=== PATIENT | male | born 1960 | race Caucasian/White ===

== ENCOUNTER 2017-11-21 09:05 | Outpatient (CLI) | payer BC | END 2017-11-21 09:06 | disposition home or self-care (01) | LOC: BICRAD 09:05 | PROVIDERS: ATTEND Urology | DX: N20.0 Calculus of kidney (principal) | CPT/HCPCS: 74018 ==

== ENCOUNTER 2018-01-16 08:58 | Outpatient (CLI) | payer BC ==
[2018-01-16 10:54] LABS: Hemoglobin 15.3 g/dL (14.0-18.0); Mean Corpuscular HGB CONC 32.9 g/dL (32.0-36.0); Mean Corpuscular Hemoglobin 30.7 pg (27.0-31.0); Mean Corpuscular Volume 93.3 fL (78.0-98.0); Mean Platelet Volume 7.3 fL (7.4-10.4); Platelet Count 230 thou/uL (130-400); RBC Distribution Width 11.9 % (11.5-14.5); Red Blood Cell (RBC) Count 4.99 mill/uL (4.70-6.10); White Blood Cell (WBC) Count 6.5 thou/uL (4.8-10.8)
[2018-01-16 11:00] LABS: Prothrombin Time 13.5 SEC (12.0-14.7)
[2018-01-16 11:12] LABS: Anion Gap 13 mmol/L (10-20); BUN (Urea Nitrogen) 24 mg/dL (8.4-25.7); Calc. Creatinine Clearance 0 mL/min (70-130); Calcium 9.7 mg/dL (7.8-10.44); Carbon Dioxide 28 mmol/L (22-29); Chloride 104 mmol/L (98-107); Estimated GFR-MDRD 62; Glucose 67 mg/dL (70-105); Potassium 4.1 mmol/L (3.5-5.1); Sodium 141 mmol/L (136-145)
[2018-01-16 11:29] LABS: Bilirubin Negative (Negative); Blood, Urine Negative (Negative); Glucose, Urine (Dipstick) Negative (Negative); Leukocyte Negative (Negative); Nitrite Negative (Negative); Protein, Urine (Dipstick) Negative (Neg-Trace); Urobilinogen 0.2 mg/dL (0.2-1.0)
[2018-01-16 11:32] LABS: Clarity Clear (Clear)
[2018-01-16 11:37] LABS: Bacteria/HPF None Seen HPF (None Seen); Hyaline Casts/LPF NONE SEEN LPF (0-3 Hyaline); RBC/HPF 0-3 HPF (0-3); Squamous Epithelial 0-3 HPF (0-3); WBC/HPF 0-3 HPF (0-3)
--- NOTE | 2018-01-17 07:53 | EKG ---
Test Reason : Blood Pressure : / mmHG Vent. Rate : 057 BPM Atrial Rate : 057 BPM P-R Int : 206 ms QRS Dur : 090 ms QT Int : 414 ms P-R-T Axes : 075 080 055 degrees QTc Int : 402 ms Sinus bradycardia Otherwise normal ECG When compared with ECG of 07-AUG-2016 18:49, Premature supraventricular complexes are no longer Present Questionable change in QRS axis Confirmed by DR. Harley VENEGAS ([id number]) on 01/17/2018 7:53:38 AM Referred By: MUMTAZ Confirmed By:DR. Harley VENEGAS
== END 2018-01-16 08:59 | disposition home or self-care (01) ==
LOC: LABBT 08:58
PROVIDERS: ATTEND Urology
DX: Z01.818 Encounter for other preprocedural examination (principal); N20.0 Calculus of kidney
CPT/HCPCS: 80048; 81001; 85027; 85610; 85730; 87086; 93005; 93010

== ENCOUNTER 2018-01-31 06:56 | Day surgery (SDC) | payer BC ==
[2018-01-16 09:31] VITALS: BMI 24.4
[2018-01-31] MEDS ORDERED: Levofloxacin 500 mg/D5W 100 ml Premix Bag ONE (08:04)
[2018-01-31] MEDS ORDERED: Midazolam HCl 2 mg/2 ml Vial ONE (09:46)
[2018-01-31] MEDS ORDERED: CEFAZOLIN 1 GM VIAL ONE (09:55)
[2018-01-31] MEDS ORDERED: Sodium Chloride 0.9% 100 ML ONE (09:55)
[2018-01-31] MEDS ORDERED: Fentanyl 100 MCG/2 ML VIAL ONE ×2 (10:02→11:58)
[2018-01-31] MEDS ORDERED: Iothalamate Meglumine 60% 50 ML VIAL FS ONE (10:04)
[2018-01-31] MEDS ORDERED: Phenazopyridine HCl 97.5 MG TABLET ONE ×2 (11:43)
--- NOTE | 2018-01-31 12:37 | OP ---
DATE OF PROCEDURE: 01/31/2018 SERVICE: Urology. SURGEON: Jian Montemayor M.D. PREOPERATIVE DIAGNOSIS: Bilateral renal stones. POSTOPERATIVE DIAGNOSIS: Bilateral renal stones. PROCEDURE PERFORMED: Left ureteroscopy, laser lithotripsy, basket extraction of stones and placement of 6 x 28 double-J stent. INDICATIONS FOR PROCEDURE: Mr. Collins is a 57-year-old white male who has bilateral renal stones. He came to me for management of stone disease. Due to his stone burden, we recommended left ureter oscopy and removal of stones. We can perform a metabolic workup later with deferred treatment of the right side depending on when he wants to do it. All risks and benefits have been discussed and he h as agreed to proceed forward. DESCRIPTION OF PROCEDURE: After identification of armband and verification of consent, the patient w as brought back to the operating room. He underwent general anesthesia with endotracheal intubation. He was then placed in dorsal lithotomy position and prepped and draped in usual sterile fashion. A fter appropriate timeout, a lubricated 22 Greenlandic rigid cystoscope was introduced per urethra into the bladder. Attention was turned to the left ureteral orifice which was cannulated with a 0.035 sensor wire up to the level of the renal pelvis. The cystoscope was then removed and a dual-lumen catheter was advanced over the sensor wire up to level the proximal ureter. An Amplatz Super Stiff wire was then placed to the second lumen up to the level of the renal pelvis and a dual-lumen catheter was the n removed. A 11/13 x 46 cm ureteral access sheath was advanced over the Super Stiff wire up to the l evel of the proximal ureter. The inner cannula and the Super Stiff wire were then removed leaving th e outer sheath and the sensor wire in place as a safety wire. A digital flexible ureteroscope was th en passed up the ureteral access sheath up to the level of renal pelvis. A full pyeloscopy was perfo rmed and there were noted to be stones in almost every maria alejandra with a large stone in the mid pole being a 9 mm stone. Using a 200 micron laser fiber, the larger stones were fragmented into smaller pieces and then a 1.9 Greenlandic 0 tip nitinol basket used to basket out all large fragments of the stone. All calices had their stones removed and upon completion, there were only probably 2-3, 1 mm stones left . I felt that these would pass on their own as they were too difficult to grab with the basket. Pul l back ureteroscopy was employed and no additional stones were seen within the ureter. The ureterosc ope was then removed with the sheath and the cystoscope brought back and over the sensor wire back in to the bladder. A 6 x 28 double-J stent was advanced over the sensor wire up to the level of the reza al pelvis. The wire was then removed leaving a partial curl in the kidney and a good curl in the nic dder. The bladder was emptied and cystoscope removed. The patient was awakened and taken to PACU fo r recovery in stable condition. COMPLICATIONS: None. ESTIMATED BLOOD LOSS: Minimal. RETAINED TUBES AND DRAINS: A 6 x 28 double-J stent on the left. SPECIMENS: Stone for stone analysis. DISPOSITION: The patient will be discharged home and follow up with me in approximately 1 week for c ystoscopy stent removal.
[2018-01-31] MEDS ORDERED: Ketorolac Tromethamine 30 MG/ML VIAL ONE (14:21)
[2018-01-31] MEDS ORDERED: Lidocaine 1% PF 5 ML VIAL ONE (14:21)
[2018-01-31] MEDS ORDERED: Dexamethasone 20 MG/5 ML VIAL ONE (14:21)
[2018-01-31] MEDS ORDERED: Ondansetron HCl/PF 4 MG/2 ML Vial ONE (14:21)
[2018-01-31] MEDS ORDERED: PROPOFOL 200 MG/20 ML VIAL ONE (14:21)
[2018-02-05 16:14] LABS: CA Oxalate Monohydrate 95 % (.); Color Brown (.); Stone Weight 150.7 mg (.)
== END 2018-01-31 13:28 | disposition home or self-care (01) ==
LOC: SDC 06:56
PROVIDERS: ATTEND Urology
PROC: 0T778DZ Dilation of Left Ureter with Intraluminal Device, Via Natural or Artificial Opening Endoscopic (ICD-10-PCS; principal; 2018-01-31)
PROC: 0TC48ZZ Extirpation of Matter from Left Kidney Pelvis, Via Natural or Artificial Opening Endoscopic (ICD-10-PCS; principal; 2018-01-31)
DX: N20.0 Calculus of kidney (principal); L40.9 Psoriasis, unspecified; F32.9 Major depressive disorder, single episode, unspecified; R73.03 Prediabetes; Z87.442 Personal history of urinary calculi; Z79.84 Long term (current) use of oral hypoglycemic drugs; Z79.899 Other long term (current) drug therapy
CPT/HCPCS: 74420; 76000; 82365; 88300; 96374; C1769; J0690; J1100; J1885; J1956; J2001; J2250; J2405; J2704; J3010; J7050; Q9961

== ENCOUNTER 2018-03-11 14:11 | Outpatient (CLI) | payer BC ==
--- NOTE | 2018-03-11 15:54 | ULT ---
COMPLETE BILATERAL RENAL ULTRASOUND: HISTORY: A 57-year-old male with a history of renal calculi. The patient had recent left lithotripsy. COMPARISON: Prior CT scan from 08/07/2016. FINDINGS: The right kidney measures 10.2 x 5.4 x 4.9 cm. The left kidney measures 11.7 x 6.4 x 5.2 cm. There is a 0.9 x 1.0 cm cyst involving the upper pole of the right kidney. There is no renal hydronephrosi s. There are numerous shadowing calcific foci in both kidneys, evidence for bilateral renal calculi. The bladder appears unremarkable. IMPRESSION: 1. Multiple nonobstructing bilateral renal calculi. 2. Small right upper pole renal cyst. POS: [facility]
== END 2018-03-11 14:12 | disposition home or self-care (01) ==
LOC: SCSULT 14:11
PROVIDERS: ATTEND Urology
DX: N20.0 Calculus of kidney (principal); N28.1 Cyst of kidney, acquired
CPT/HCPCS: 76770

== ENCOUNTER 2018-04-01 14:32 | Outpatient (CLI) | payer BC ==
[2018-04-01 15:02] LABS: #Eosinphils 0.1 thou/uL (0.0-0.7); #Lymphocytes 1.5 thou/uL (1.20-3.40); #Monocytes 0.7 thou/uL (0.11-0.59); #Neutrophils 3.7 thou/uL (1.40-6.50); %Basophils 0.6 % (0.0-1.0); %Eosinophils 1.7 % (0.0-10.0); %Lymphocytes 24.8 % (21.0-51.0); %Monocytes 11.8 % (0.0-10.0); %Neutrophils 61.1 % (42.0-75.0); Hemoglobin 14.6 g/dL (14.0-18.0); Mean Corpuscular HGB CONC 31.7 g/dL (32.0-36.0); Mean Corpuscular Hemoglobin 29.6 pg (27.0-31.0); Mean Corpuscular Volume 93.6 fL (78.0-98.0); Mean Platelet Volume 6.9 fL (7.4-10.4); Platelet Count 213 thou/uL (130-400); RBC Distribution Width 11.9 % (11.5-14.5); Red Blood Cell (RBC) Count 4.93 mill/uL (4.70-6.10)
[2018-04-01 15:07] LABS: PTT 27.7 SEC (22.9-36.1)
[2018-04-01 15:23] LABS: Bilirubin Negative (Negative); Blood, Urine Negative (Negative); Clarity CLEAR (Clear); Glucose, Urine (Dipstick) Negative (Negative); Leukocyte Negative (Negative); Nitrite Negative (Negative); Protein, Urine (Dipstick) Negative (Neg-Trace); Specific Gravity, Urine 1.012 (1.002-1.036); Urobilinogen 0.2 mg/dL (0.2-1.0); pH, Urine 5.5 (5.0-9.0)
[2018-04-01 15:25] LABS: Anion Gap 10 mmol/L (10-20); BUN (Urea Nitrogen) 22 mg/dL (8.4-25.7); Calc. Creatinine Clearance 0 mL/min (70-130); Calcium 9.9 mg/dL (7.8-10.44); Carbon Dioxide 30 mmol/L (22-29); Chloride 102 mmol/L (98-107); Estimated GFR-MDRD 68; Glucose 96 mg/dL (70-105); Potassium 4.1 mmol/L (3.5-5.1); Sodium 138 mmol/L (136-145)
[2018-04-01 15:31] LABS: Bacteria/HPF None Seen HPF (None Seen); Hyaline Casts/LPF 0-3 HYALINE CAST LPF (0-3 Hyaline); Pathc Cast-AUWi Flag 0.14 (0-2.49); RBC/HPF 0-3 HPF (0-3); Squamous Epithelial None Seen HPF (0-3); WBC/HPF None Seen HPF (0-3)
== END 2018-04-01 14:33 | disposition home or self-care (01) ==
LOC: LABBT 14:32
PROVIDERS: ATTEND Urology
DX: Z01.818 Encounter for other preprocedural examination (principal); N20.0 Calculus of kidney
CPT/HCPCS: 80048; 81001; 85025; 85610; 85730; 87086; 93005; 93010

== ENCOUNTER 2018-04-11 07:53 | Day surgery (SDC) | payer BC ==
[2018-04-01 15:02] VITALS: BMI 25.8
[2018-04-11] MEDS ORDERED: Lidocaine 1% PF 5 ML VIAL ONE (11:19)
[2018-04-11] MEDS ORDERED: Glycopyrrolate 0.2 MG/ML 5 ML SYRINGE ONE (11:19)
[2018-04-11] MEDS ORDERED: Dexamethasone 20 MG/5 ML VIAL ONE (11:19)
[2018-04-11] MEDS ORDERED: PROPOFOL 200 MG/20 ML VIAL ONE (11:19)
[2018-04-11] MEDS ORDERED: Ondansetron PF 4 MG/2 ML Vial ONE (11:19)
[2018-04-11] MEDS ORDERED: ePHEDrine/0.9% NaCl/PF SYRINGE 50 mg/10 ml ONE (11:19)
[2018-04-11] MEDS ORDERED: Levofloxacin 500 mg/D5W 100 ml Premix Bag ONE (11:38)
[2018-04-11] MEDS ORDERED: Midazolam HCl 2 mg/2 ml Vial ONE (11:51)
[2018-04-11] MEDS ORDERED: Fentanyl 100 MCG/2 ML VIAL ONE ×2 (11:55→14:14)
[2018-04-11] MEDS ORDERED: Phenazopyridine HCl 97.5 MG TABLET ONE ×2 (13:40→13:48)
[2018-04-11] MEDS ORDERED: Phenazopyridine HCl 97.5 MG TABLET PO SCH (14:15)
[2018-04-11] MEDS ORDERED: HYDROcodone/Acetaminophen 5/325 mg Tablet ONE (15:43)
[2018-04-11] MEDS ORDERED: Promethazine HCl 25 MG/ML VIAL ONE (16:23)
--- NOTE | 2018-04-11 21:48 | OP ---
DATE OF PROCEDURE: 04/11/2018 SERVICE: Urology. PREOPERATIVE DIAGNOSIS: Right renal stones. POSTOPERATIVE DIAGNOSIS: Right renal stones. PROCEDURES PERFORMED: Right ureteroscopy, laser lithotripsy, basket extraction of stones and placement of a 6 x 28 double J-stent. INDICATIONS FOR PROCEDURE: Mr. Collins is a 57-year-old white male who presented initially with the right obstructing stone and bilateral nephrolithiasis. He ended up passing his right ureteral stone, but has large stones in the left and right. He has already completed a left ureteroscopy with removal of all stones and is now coming back to get the right side cleaned out. Risks and benefits have been discussed, and he has agreed to proceed forward. DESCRIPTION OF PROCEDURE: After identification of arm band and verification of consent, the patient was brought back to the operating room, where he underwent general anesthesia with endotracheal intubation. He was then placed in dorsal lithotomy position and prepped and draped in the usual sterile fashion. After appropriate time-out, a lubricated 22-Mauritanian rigid cystoscope was introduced per urethra into the bladder and attention turned to the right ureteral orifice, which was cannulated with the 0.035 Sensor wire up to the level of the renal pelvis. The cystoscope was then removed and a dual-lumen catheter was advanced over the Sensor wire up to the level of the proximal ureter. An Amplatz Super Stiff wire was then placed through the second lumen up to the level of the renal pelvis and the dual-lumen removed. The Sensor wire was affixed to the drapes and safety wire. An 11/13 x 46 cm ureteral access sheath was advanced over the Super Stiff wire up to the level of the mid proximal ureter, where it would not advance any further. The inner cannula and Super Stiff wire were then removed and disposable flexible digital ureteroscope was brought in and advanced up the ureter into the renal pelvis. Full pyeloscopy was performed, and there were multiple calices that had intermediate to larger size stones. 200 micron laser fibers were used to fragment all of the stones into pieces that were able to be removed and a 1.9-Mauritanian ZeroTip Nitinol basket was used to remove all fragments that were over 1 mm in size. Upon completion, all stone fragments remaining were less than a millimeter, they were extremely small and too small to grasp with the basket. Satisfied that all the major stones had been removed and any residual pieces could pass on their own. The final pyeloscopy was performed and no additional stones were found. Pull-back ureteroscopy was then employed and no additional stones were found in the ureter. The ureteroscope was then removed along with the sheath and the cystoscope was back-loaded over the Sensor wire back into the bladder. A 6 x 28 double J-stent was advanced over the Sensor wire up to the level of the renal pelvis and then the wire was removed, leaving a partial curl in the renal pelvis and good curl in the bladder. Bladder was then emptied and the cystoscope removed. The patient was then awakened and taken to PACU for recovery in stable condition. COMPLICATIONS: None. ESTIMATED BLOOD LOSS: Minimal. RETAINED TUBES AND DRAINS: 6 x 28 double J-stent on the right. SPECIMENS: Stones for stone analysis. DISPOSITION: The patient will be discharged to home and follow up with me in 1 week for cysto and stent removal. Job ID: [id number]
== END 2018-04-11 16:50 | disposition home or self-care (01) ==
LOC: SDC 07:53
PROVIDERS: ATTEND Urology
PROC: 0T768DZ Dilation of Right Ureter with Intraluminal Device, Via Natural or Artificial Opening Endoscopic (ICD-10-PCS; principal; 2018-04-11)
PROC: 0TF38ZZ Fragmentation in Right Kidney Pelvis, Via Natural or Artificial Opening Endoscopic (ICD-10-PCS; principal; 2018-04-11)
DX: N20.0 Calculus of kidney (principal); Z79.899 Other long term (current) drug therapy
CPT/HCPCS: 76000; 82365; 88300; 96374; C1769; J1100; J1956; J2001; J2250; J2405; J2550; J2704; J3010

== ENCOUNTER 2018-10-11 11:06 | Outpatient (CLI) | payer BC ==
--- NOTE | 2018-10-11 13:47 | ULT ---
BILATERAL RENAL ULTRASOUND: 10/11/18 HISTORY: Kidney stones. FINDINGS: The right kidney measures 10 cm in length and the left measures 11 cm in length. There are bilateral renal calculi. No hydronephrosis identified. There is a small cyst in the right kidney measuring abo ut 1 cm. The urinary bladder is well distended and has a normal appearance with a prevoid volume of 1 21 mL. Complete emptying is seen on the postvoid image. IMPRESSION: 1. Nonobstructing bilateral renal calculi. 2. Small right renal cyst. POS: [facility]
== END 2018-10-11 11:07 | disposition home or self-care (01) ==
LOC: SCSULT 11:06
PROVIDERS: ATTEND Urology
DX: N20.0 Calculus of kidney (principal); N28.1 Cyst of kidney, acquired
CPT/HCPCS: 76770

== ENCOUNTER 2025-04-22 08:32 | Outpatient (CLI) | payer BC ==
[2025-04-22 09:25] LABS: #Basophils Less than 0.03 10x3/uL (0.0-0.2); #Eosinophils 0.08 10x3/uL (0.0-0.7); #Monocytes 0.58 10x3/uL (0.11-0.59); #Neutrophils 2.77 10x3/uL (1.40-6.50); %Basophils 0.2 % (0.0-1.0); %Eosinophils 1.6 % (0.0-10.0); %Lymphocytes 29.0 % (21.0-51.0); %Monocytes 11.9 % (0.0-10.0); %Neutrophils 57.1 % (42.0-75.0); Hematocrit 49.8 % (42.0-52.0); Hemoglobin 15.6 g/dL (14.0-18.0); Mean Corpuscular Hemoglobin 28.9 pg (27.0-31.0); Mean Corpuscular Volume 92.4 fL (78.0-98.0); Platelet Count 189 10x3/uL (130-400); Red Blood Cell (RBC) Count 5.39 mill/uL (4.70-6.10); White Blood Cell (WBC) Count 4.86 10x3/uL (4.8-10.8)
[2025-04-22 09:48] LABS: Anion Gap 10 mmol/L (10-20); BUN (Urea Nitrogen) 24 mg/dL (8.4-25.7); Calc. Creatinine Clearance 0 mL/min (70-130); Calcium 9.6 mg/dL (7.8-10.44); Carbon Dioxide 28 mmol/L (23-31); Chloride 105 mmol/L (98-107); Glucose 89 mg/dL (80-115); Potassium 4.7 mmol/L (3.5-5.1); Sodium 138 mmol/L (136-145)
[2025-04-22 09:53] LABS: INR-International Normal Ratio 1.2; Prothrombin Time 15.3 sec (12.0-14.7)
[2025-04-22 09:54] LABS: PTT 32.4 sec (22.9-36.1)
== END 2025-04-22 08:33 | disposition home or self-care (01) ==
LOC: LABBT 08:32
PROVIDERS: ATTEND Internal Medicine Cardiovascular Disease
DX: Z01.812 Encounter for preprocedural laboratory examination (principal); I48.19 Other persistent atrial fibrillation
CPT/HCPCS: 80048; 85025; 85610; 85730